=== PATIENT | male | born 1955 | race African-American/Black ===

== ENCOUNTER 2016-10-12 21:18 | Emergency (ER) | payer OTHER ==
[2016-10-12 21:42] VITALS: BP 133/81; PULSE 90; TEMP 98.5; BMI 33.6
[2016-10-12 22:21] LABS: URINE APPEARANCE CLEAR; URINE BILIRUBIN NEGATIVE (NEGATIVE); URINE COLOR LTYELLOW; URINE GLUCOSE (UA) NEGATIVE (NEGATIVE); URINE KETONE NEGATIVE (NEGATIVE); URINE LEUK ESTERASE NEGATIVE (NEGATIVE); URINE NITRITE NEGATIVE (NEGATIVE); URINE PROTEIN NEGATIVE (NEGATIVE); URINE UROBILINOGEN NEGATIVE E.U./dl (0.2-1.0)
[2016-10-12 22:27] LABS: URINE BLOOD 2+ (NEGATIVE)
[2016-10-12 22:32] LABS: URINE HYALINE CAST 3 /lpf; URINE MUCUS RARE; URINE RBC 5 /hpf (0-3); URINE WBC 1 /hpf (3-5)
--- NOTE | 2016-10-12 22:32 | PDOC ---
History of Present Illness - General Chief Complaint: Back Pain Stated Complaint: BACK PAIN Time Seen by Provider: 10/12/16 22:23 History Source: Patient Exam Limitations: No Limitations - History of Present Illness Initial Comments: CHIEF COMPLAINT: 60 y/o afebrile male with PMH HTN, HLD, and mild prostate issue c/o b/l pelvic and low back pain x 6 days. HISTORY OF PRESENT ILLNESS: The patient states he first had right pelvic pain that wrapped around to his right side. 2 days ago the pain began on his left side. He states he also has some discomfort in his testicles, and states the last time he had these symptoms he was diagnosed with a kidney stone. He describes the pain as intermittent and not changed with movement. He denies f/c , n/v/d, CP, SOB, hematuria, dysuria, increased urinary frequency, abnormal penile discharge, fall, trauma to back. Pt hasn't taken anything for pain. PCP Dr. Crowley Urologist. Vital signs on arrival are within normal limits. REVIEW OF SYSTEMS: GENERAL/CONSTITUTIONAL: No fever/chills. No weakness. No weight change. HEAD, EYES, EARS, NOSE AND THROAT: No change in vision. No ear pain or discharge. No sore throat. CARDIOVASCULAR: No chest pain or shortness of breath. RESPIRATORY: No cough, wheezing, or hemoptysis. GASTROINTESTINAL: +pelvic and low back pain. GENITOURINARY: No dysuria, frequency, or change in urination. MUSCULOSKELETAL: No joint or muscle swelling or pain. No neck or back pain. SKIN: No rash or easy bruising. NEUROLOGIC: No headache, vertigo, loss of consciousness, or loss of sensation. PHYSICAL EXAM: GENERAL: The patient is awake, alert, and fully oriented, in no acute distress. He is well appearing, ambulatory, appears younger than stated age. HEAD: Normal with no signs of trauma. ENT: Pupils equal, round and reactive to light, extraocular movements intact, sclera anicteric, conjunctiva clear. Neck supple. LUNGS: Clear to auscultation bilaterally. Normal excursion. No respiratory distress or use of accessory muscles. CV: RRR, S1/S2, no MRG. Cap refill < 2 sec. ABDOMEN: Soft, non-distended, non-tender even to deep palpation, no hepatomegaly or splenomegaly, no masses. BACK: Minimal pain with palpation of b/l flanks. No TTP lumbar paravertebral muscles. No midline lumbar spine TTP. No CVA TTP b/l. EXTREMITIES: Normal range of motion, no edema. NEUROLOGICAL: Normal speech, normal gait. CN II-XII grossly intact. PSYCH: Normal mood, normal affect. SKIN: Warm, dry, normal turgor, no rashes or lesions noted. Past History - Past Medical History Allergies/Adverse Reactions: Allergies Allergy/AdvReac Type Severity Reaction Status Date / Time No Known Allergies Allergy Verified 10/12/16 21:40 Home Medications: Ambulatory Orders No Home Medications 0 dose .ROUTE UTDICT 03/16/13 - Psycho/Social/Smoking Cessation Hx Suicidal Ideation: No Smoking Status: No Smoking History: Never smoked Have you smoked in the past 12 months: No Number of Cigarettes Smoked Daily: 0 Information on smoking cessation initiated: No Hx Alcohol Use: No Drug/Substance Use Hx: No *Physical Exam - Vital Signs Last Vital Signs Temp Pulse Resp BP Pulse Ox 98.5 F 90 20 133/81 97 10/12/16 21:40 10/12/16 21:40 10/12/16 21:40 10/12/16 21:40 10/12/16 21:40 Medical Decision Making - Medical Decision Making A/P: 60 y/o male with atraumatic b/l flank and pelvic pain x 6 days. Plan is as follows: 1. UA/culture 2. GC/chlamydia Pt is declining pain medication at this time. UA without signs of infection but with 2+ blood. Suspect he has passed a kidney stone as the patient admits the pain is better than it was a few days ago. Will give IM toradol. Suggested he take ibuprofen or advil at home with food for pain, drink plenty of fluids and keep his Urology appointment scheduled for next week. Instructed him to return to the ER immediately with any worsening or concerning symptoms including fever, kidney pain and/or vomiting. The patient verbalizes understanding of all instructions, has no further questions and is awaiting discharge. *DC/Admit/Observation/Transfer Diagnosis at time of Disposition: Flank pain, Hematuria - Discharge Dispostion Disposition: HOME Condition at time of disposition: Good - Referrals Referrals: Julio Crowley [Primary Care Provider] - - Patient Instructions Printed Discharge Instructions: DI for Flank Pain, DI for Kidney Stones, DI for Hematuria Additional Instructions: Discharge Instructions: -Take 800mg of Ibuprofen every 8 hours OR 600mg of Advil every 6 hours with food for pain -Drink AT LEAST 64 oz of water daily -Keep the follow up appointment scheduled with your Urologist for next week -Return to the ER immediately with any worsening or concerning symptoms, including fever, kidney pain, vomiting.
[2016-10-12] MEDS ORDERED: KETOROLAC TROMETHAMINE 60 MG/2 ML VIAL IM ONE (22:52)
[2016-10-12] MEDS ORDERED: KETOROLAC TROMETHAMINE 60 MG/2 ML VIAL ONE (22:52)
== END 2016-10-12 22:57 | disposition home or self-care (01) ==
LOC: JERFT 21:18
PROC: 3E0233Z Introduction of Anti-inflammatory into Muscle, Percutaneous Approach (ICD-10-PCS; principal; 2016-10-12)
DX: R31.9 Hematuria, unspecified (principal); R10.2 Pelvic and perineal pain; E78.5 Hyperlipidemia, unspecified; I10 Essential (primary) hypertension
CPT/HCPCS: 36415; 81003; 81015; 87086; 87491; 87591; 96372; 99281-25

== ENCOUNTER 2018-07-29 20:50 | Emergency (ER) | payer OTHER ==
--- NOTE | 2018-07-29 21:00 | PDOC ---
Rapid Medical Evaluation Time Seen by Provider: 07/29/18 20:57 Medical Evaluation: Allergies Allergy/AdvReac Type Severity Reaction Status Date / Time No Known Allergies Allergy Verified 10/12/16 21:40 07/29/18 20:58 Pt presents for L sided neck pain starting today. Pain with rotational movements. Took motrin and used the TENS machine today with little relief. No trauma Exam: NAD, ambulatory Orders: Nothing Pt to proceed to the ED for further evaluation Discharge Disposition - Diagnosis Neck pain - Referrals - Patient Instructions - Post Discharge Activity
[2018-07-29 21:01] VITALS: BP 106/85; PULSE 84; TEMP 98.3; BMI 35.5
--- NOTE | 2018-07-29 21:42 | PDOC ---
History of Present Illness - General Chief Complaint: Pain, Acute Stated Complaint: NECK PAIN Time Seen by Provider: 07/29/18 20:57 - History of Present Illness Initial Comments: 07/29/18 21:39 62-year-old male with a past medical history significant for hypertension presents for evaluation of left-sided neck pain without systemic symptoms first noticing his pain after doing some work in the garden. Over the last 2 days pain progressed and he has difficulty turning his head. Past History - Past Medical History Allergies/Adverse Reactions: Allergies Allergy/AdvReac Type Severity Reaction Status Date / Time No Known Allergies Allergy Verified 07/29/18 20:59 Home Medications: Ambulatory Orders Amlodipine Besylate 5 mg PO ASDIR 07/29/18 Cyclobenzaprine HCl [Flexeril 10 mg] 10 mg PO HS PRN #10 tablet 07/29/18 Lisinopril [Zestril] 5 mg PO ASDIR 07/29/18 COPD: No - Suicide/Smoking/Psychosocial Hx Smoking Status: No Smoking History: Former smoker Have you smoked in the past 12 months: No Number of Cigarettes Smoked Daily: 0 If you are a former smoker, when did you quit?: 7 years ago Information on smoking cessation initiated: No Hx Alcohol Use: No Drug/Substance Use Hx: No Review of Systems - Review of Systems Musculoskeletal: Yes: Neck Pain *Physical Exam - Vital Signs Last Vital Signs Temp Pulse Resp BP Pulse Ox 98.3 F 84 18 106/85 95 07/29/18 20:59 07/29/18 20:59 07/29/18 20:59 07/29/18 20:59 07/29/18 20:59 - Physical Exam Comments: 07/29/18 21:39 Cervical spine skin color and temperature are normal. Range of motion is decreased secondary to pain. There is tenderness at the insertion point of the sternocleidomastoid at the mastoid process. An along the muscle belly. No other areas of tenderness no midline tenderness or paracervical musculature tenderness. 5 out of 5 strength in bilateral upper extremities without gross sensorimotor deficits. He is unable to tolerated Spurling maneuver. Upper from the compartments are soft and nontender is neurovascularly intact. Moderate Sedation - Procedure Monitoring Vital Signs: Procedure Monitoring Vital Signs Temperature 98.3 F 07/29/18 20:59 Pulse Rate 84 07/29/18 20:59 Respiratory Rate 18 07/29/18 20:59 Blood Pressure 106/85 07/29/18 20:59 O2 Sat by Pulse Oximetry (%) 95 07/29/18 20:59 *DC/Admit/Observation/Transfer Diagnosis at time of Disposition: Neck pain, Cervical strain - Discharge Dispostion Disposition: HOME Condition at time of disposition: Stable Decision to Admit order: No - Referrals Referrals: Julio Crowley [Primary Care Provider] - Saad Bueno MD [Staff Physician] - - Patient Instructions Printed Discharge Instructions: DI for Cervical Muscle Strain Additional Instructions: Please take the muscle relaxer as directed. One tablet before bedtime. Will make you sleepy. Return to the emergency room should symptoms worsen or go unresolved. No anti-inflammatories because of your high blood pressure medication. He may take Tylenol as directed. Return to the emergency room should symptoms worsen or go unresolved and follow-up with orthopedic spine surgery in 1-2 days for further evaluation and treatment options. - Post Discharge Activity
== END 2018-07-29 21:47 | disposition home or self-care (01) ==
LOC: JERFT 20:50
DX: S16.1XXA Strain of muscle, fascia and tendon at neck level, initial encounter (principal); X50.9XXA Other and unspecified overexertion or strenuous movements or postures, initial encounter; Y93.H2 Activity, gardening and landscaping; Y92.89 Other specified places as the place of occurrence of the external cause; Y99.8 Other external cause status; I10 Essential (primary) hypertension
CPT/HCPCS: 99281-25

== ENCOUNTER 2021-03-11 12:57 | Emergency (ER) | payer OTHER ==
[2021-03-11 13:06] VITALS: BP 131/56; PULSE 72; TEMP 97.8; BMI 36.2
[2021-03-11] MEDS ORDERED: morphine CARPU-JECT 2 MG/1 ML DISP.SYRIN IVPUSH ONE (13:30)
[2021-03-11] MEDS ORDERED: SODIUM CHLORIDE 0.9% 500 ML INFUS.BAG IV ONE (13:35)
[2021-03-11] MEDS ORDERED: MORPHINE SULFATE 2 MG/ML VIAL ONE (13:40)
[2021-03-11 14:04] LABS: BASO % 0.9 % (0-2.0); EOS % 0.9 % (0-4.5); HEMOGLOBIN 14.2 GM/dL (11.7-16.9); LYMPH % 29.3 % (8-40); MCH 28.4 pg (25.7-33.7); MEAN CELL VOLUME 86.3 fl (80-96); MEAN PLT VOLUME 8.7 fl (7.5-11.1); MONO % 7.6 % (3.8-10.2); NEUT % 61.3 % (42.8-82.8); PLATELET COUNT 277 10^3/uL (134-434); RBC 4.99 M/mm3 (4.00-5.60); WHITE BLOOD COUNT 11.2 K/mm3 (4.0-10.0)
[2021-03-11 14:24] LABS: ALBUMIN 3.6 g/dl (3.4-5.0); CALCIUM 9.3 mg/dL (8.5-10.1)
[2021-03-11 14:27] LABS: CREATININE 1.2 mg/dL (0.55-1.3)
[2021-03-11 14:29] LABS: BILIRUBIN,TOTAL 0.5 mg/dL (0.2-1); TOT PROT 8.3 g/dl (6.4-8.2)
[2021-03-11 14:34] LABS: EPI CELLS 4 /uL (0-25.1); HYALINE CASTS 1 /uL (0-3.1); URINE APPEARANCE CLEAR; URINE BACTERIA 20 /uL (0-1359); URINE BILIRUBIN NEGATIVE (NEGATIVE); URINE COLOR YELLOW; URINE GLUCOSE (UA) NEGATIVE (NEGATIVE); URINE KETONE NEGATIVE (NEGATIVE); URINE LEUK ESTERASE NEGATIVE (NEGATIVE); URINE NITRITE NEGATIVE (NEGATIVE); URINE PROTEIN NEGATIVE (NEGATIVE); URINE RBC 34 /uL (0-23.9); URINE UROBILINOGEN 0.2 mg/dL (0.2-1.0); URINE WBC 4 /uL (0-25.8)
[2021-03-11] MEDS ORDERED: KETOROLAC TROMETHAMINE 30 MG/1 ML VIAL IVPUSH ONE (15:01)
[2021-03-11] MEDS ORDERED: KETOROLAC TROMETHAMINE 30 MG/1 ML VIAL ONE (15:05)
== END 2021-03-11 16:32 | disposition home or self-care (01) ==
LOC: JERFT 12:57
PROC: 3E033NZ Introduction of Analgesics, Hypnotics, Sedatives into Peripheral Vein, Percutaneous Approach (ICD-10-PCS; principal; 2021-03-11)
PROC: 3E0333Z Introduction of Anti-inflammatory into Peripheral Vein, Percutaneous Approach (ICD-10-PCS; 2021-03-11)
DX: M54.5 Low back pain (principal)
CPT/HCPCS: 36415; 74177-TC; 80053; 81003; 85025; 99285-25